=== PATIENT | male | born 1975 | race Caucasian/White ===

== ENCOUNTER → 2017-03-09 | Outpatient (REF) ==
[~2017-03-09] MED LIST: ADVIL200 MG PO; AMOXICILLIN 50500 MG PO; AZITHROMYCIN250 MG PO; CEPHALEXIN500 M1 PO; CYMBALTA 20MG20 MG PO; DARVOCET A500 51 TAB PO; ECHINACEA100 MG PO; EXCEDRIN PM 5001 CAP PO; FLEXERIL 1010 MG/TAB PO; GINKO BILOBA60 MG PO; HYDRALAZINE HCL25 MG PO; LOPRESSOR 550 MG/TAB PO; LORTAB 5/500 501 TAB; LORTAB 5/500 501 TAB PO; MEDROL 4MG DOSPA4 MG PO; MOTRIN; MULTIPLE VITAMI1 CAP PO; MULTIPLE VITAMI1 TAB PO; MUSCLE RELAXANT; MVI; NAPROSYN500 MG PO; NEXIUM 20MG CAP20 MG PO; NO HOME MEDICATIONS; NORCO 325 MG-51 TAB PO; NORCO 325 MG-7.1 TAB PO; ONE DAILY MEN'S1 TAB PO; PERCOCET 325 MG1 TA2 PO; PREDNISONE 2.52.5 MG; PREVACID 30MG30 M1 PO; PRILOSEC40 MG PO; RITE AID TURME500 MG PO; ST JOHN S WORT; TOPROL XL50 MG PO; TYLENOL 500MG500 MG PO; ULTRAM 50MG TAB50 MG PO; ULTRAM50 MG PO; VALIUM 2MG T2 MG/TAB PO; VALIUM 5MG T5 MG/TAB PO; VICODIN 5/5001 UDTAB PO; ZANAFLEX2 MG PO
== END ==
LOC: WSOH 09:26
DX: Z02.89 Encounter for other administrative examinations (principal)

== ENCOUNTER 2017-03-19 10:39 | Outpatient (RCR) | payer OTHER | END 2017-03-27 13:58 | disposition still patient (30) | LOC: WSOH 10:39 | DX: R05 Cough (principal); R06.2 Wheezing; Z77.120 Contact with and (suspected) exposure to mold (toxic); Y99.0 Civilian activity done for income or pay ==